=== PATIENT | female | born 1990 | race Caucasian/White ===

== ENCOUNTER 2017-02-17 09:57 | Emergency (ER) | payer OTHER ==
[~2017-02-17] VITALS: Ht 162.6 cm; Wt 95.3 kg
[~2017-02-17 09:57] MED LIST: HEATHER0.35 MG PO; KEFLEX500 MG PO; TRAMADOL 50 MG50 MG PO
[2017-02-17 10:54] LABS: ABSOLUTE NEUTROPHILS 6.1 thou/uL (1.4-8.2); BASOPHILS 0.9 % (0.0-2.0); EOSINOPHILS 0.8 % (0.0-3.0); HEMATOCRIT 42.3 % (37.0-47.0); HEMOGLOBIN 14.4 gm/dL (12.0-15.0); LYMPHOCYTES 22.1 % (24.0-44.0); MCH 27.9 pg (26.0-34.0); MCHC 34.1 g/dL (28.0-37.0); MONOCYTES 5.7 % (1.0-8.0); PLATELET COUNT 278 thou/uL (150-400); POLYS 70.5 % (36.0-66.0); RBC 5.15 mil/uL (4.20-5.00); RDW 14.3 % (10.5-14.5); WBC 8.7 thou/uL (4.0-11.0)
[2017-02-17 10:59] LABS: URINE BILIRUBIN NEGATIVE (Negative); URINE BLOOD 3+ (Negative); URINE COLOR YELLOW; URINE GLUCOSE-RANDOM* NEGATIVE (Negative); URINE KETONES NEGATIVE (Negative); URINE PROTEIN (DIPSTICK) TRACE (Negative); URINE UROBILINOGEN 0.2 E.U./dl (0.2-1.0)
[2017-02-17 11:02] LABS: MANUAL DIFF NO
[2017-02-17 11:07] LABS: CALCIUM 9.4 mg/dL (8.5-10.1); CREATININE 0.8 mg/dL (0.6-1.0); POTASSIUM 3.5 mmol/L (3.5-5.1)
[2017-02-17 11:13] LABS: ALBUMIN 4.4 g/dL (3.4-5.0); TOTAL BILIRUBIN 0.2 mg/dL (<0.1-1.0); TOTAL PROTEIN 8.2 g/dL (6.4-8.2)
[2017-02-17 11:14] LABS: URINE LEUKOCYTES-REFLEX TRACE (Negative)
[2017-02-17 11:21] LABS: SQUAMOUS >10 Many /LPF (0-3); URINE RBC >20 Many /HPF (0-2)
[2017-02-17 11:22] LABS: CASTS None Seen /LPF (None Seen); CRYSTALS None Seen /LPF (None Seen); URINE WBC-REFLEX 0-5 Rare /HPF (0-5)
[2017-02-17] MEDS ORDERED: HYDROCODONE-AP1 EAC6 PO (11:25)
[2017-02-17] MEDS ORDERED: SENNA8.6 MG PO (11:25)
== END 2017-02-17 11:49 | disposition home or self-care (01) ==
LOC: ER 09:57
PROVIDERS: Physician Assistant
DX: M54.5 Low back pain (principal); R53.1 Weakness; F17.210 Nicotine dependence, cigarettes, uncomplicated; Z90.721 Acquired absence of ovaries, unilateral

== ENCOUNTER 2018-01-25 11:06 | Emergency (ER) | payer OTHER ==
[~2018-01-25] VITALS: Ht 162.6 cm; Wt 99.8 kg
[~2018-01-25 11:06] MED LIST changes: +HYDROCODONE-AP1 EAC6 PO; +SENNA8.6 MG PO
[2018-01-25 11:46] LABS: URINE BILIRUBIN NEGATIVE (Negative); URINE BLOOD NEGATIVE (Negative); URINE CLARITY CLEAR; URINE COLOR YELLOW; URINE GLUCOSE-RANDOM* NEGATIVE (Negative); URINE KETONES NEGATIVE (Negative); URINE NITRITE-REFLEX NEGATIVE (Negative); URINE PROTEIN (DIPSTICK) NEGATIVE (Negative); URINE UROBILINOGEN 0.2 E.U./dl (0.2-1.0)
[2018-01-25 11:47] LABS: URINE LEUKOCYTES-REFLEX TRACE (Negative)
[2018-01-25 11:56] LABS: ABSOLUTE NEUTROPHILS 9.7 thou/uL (1.4-8.2); BASOPHILS 0.5 % (0.0-2.0); EOSINOPHILS 0.8 % (0.0-3.0); HEMATOCRIT 43.9 % (37.0-47.0); HEMOGLOBIN 15.2 gm/dL (12.0-15.0); LYMPHOCYTES 19.5 % (24.0-44.0); MCH 28.5 pg (26.0-34.0); MCHC 34.5 g/dL (28.0-37.0); MCV 82.6 fL (80.0-100.0); PLATELET COUNT 322 thou/uL (150-400); POLYS 72.2 % (36.0-66.0); RBC 5.32 mil/uL (4.20-5.00); RDW 13.3 % (10.5-14.5); WBC 13.5 thou/uL (4.0-11.0)
[2018-01-25 12:07] LABS: CREATININE 0.8 mg/dL (0.6-1.0); POTASSIUM 4.2 mmol/L (3.5-5.1)
[2018-01-25] MEDS ORDERED: LIORESAL 10 MG10 MG PO (12:19)
[2018-01-25] MEDS ORDERED: LORATIDINE 10 M10 M1 PO (12:19)
[2018-01-25] MEDS ORDERED: FLONASE 0.05%50 MCG NASAL (12:19)
[2018-01-25] MEDS ORDERED: TRAMADOL 50 MG50 MG PO (19:14)
== END 2018-01-25 12:30 | disposition home or self-care (01) ==
LOC: ER 11:06
PROVIDERS: Physician Assistant
DX: R25.2 Cramp and spasm (principal); M54.5 Low back pain; G89.29 Other chronic pain; J32.9 Chronic sinusitis, unspecified; F17.210 Nicotine dependence, cigarettes, uncomplicated

== ENCOUNTER 2018-01-25 15:37 | Emergency (ER) | payer OTHER ==
[~2018-01-25] VITALS: Ht 162.6 cm; Wt 99.8 kg
--- NOTE | ~2018-01-25 | EKG ---
[address] [address] ELECTROCARDIOGRAM REPORT Name: FREDDY CRAWFORD Room #: BRYCE Hackett#: [id number] Admission: 01/25/18 Attend Phys: Discharge: Date of : 89 Report #: [id number] THIS REPORT FOR: //name// [facility] ED Test Date: 2018-01-25 Test Time: 15:53:23 Pat Name: FREDDY CRAWFORD Department: Room: Gender: F Customer Services Manager: TAMARA : 1990 Requested By: Stu Freeman Order Number: [id number] MD: Justen Hercules Measurements Intervals [place] Rate: 141 P: 41 WA: 124 QRS: 48 QRSD: 80 T: 6 QT: 280 QTc: 429 Interpretive Statements Sinus tachycardia No previous ECG available for comparison Electronically Signed On 01-25-2018 16:30:56 CDT by Justen Hercules [email or web address] <ELECTRONICALLY SIGNED> By: Justen Hercules MD 01/25/18 1630 1553 1553 Justen Hercules MD /EPI
[~2018-01-25 15:37] MED LIST changes: +FLONASE 0.05%50 MCG NASAL; +LIORESAL 10 MG10 MG PO; +LORATIDINE 10 M10 M1 PO
[2018-01-25 16:53] LABS: AMP/METHAMP Negative (Negative); BARBITURATES Negative (Negative); BENZODIAZEPINES Negative (Negative); COCAINE Negative (Negative); METHADONE Negative (Negative); OPIATES POSITIVE (Negative); PCP Negative (Negative)
[2018-01-25 17:26] LABS: URINE BILIRUBIN NEGATIVE (Negative); URINE BLOOD TRACE (Negative); URINE CLARITY CLEAR; URINE COLOR YELLOW; URINE GLUCOSE-RANDOM* 3+ (Negative); URINE KETONES NEGATIVE (Negative); URINE LEUKOCYTES-REFLEX NEGATIVE (Negative); URINE NITRITE-REFLEX NEGATIVE (Negative); URINE PROTEIN (DIPSTICK) NEGATIVE (Negative); URINE UROBILINOGEN 0.2 E.U./dl (0.2-1.0)
[2018-01-25] MEDS ORDERED: TRAMADOL 50 MG50 MG PO (19:14)
== END 2018-01-25 19:49 | disposition home or self-care (01) ==
LOC: ER 15:37
PROVIDERS: Physician Assistant
DX: R51 Headache (principal); M54.9 Dorsalgia, unspecified; J32.9 Chronic sinusitis, unspecified

== ENCOUNTER 2018-05-02 12:46 | Emergency (ER) | payer OTHER ==
[~2018-05-02] VITALS: Ht 162.6 cm; Wt 101.2 kg
[2018-05-02] MEDS ORDERED: TRAMADOL 50 MG50 MG PO (14:24)
[2018-05-02 15:02] VITALS: BP 141/90
== END 2018-05-02 16:13 | disposition home or self-care (01) ==
LOC: ER 12:46
DX: M54.5 Low back pain (principal); G89.29 Other chronic pain; F17.210 Nicotine dependence, cigarettes, uncomplicated; Z90.721 Acquired absence of ovaries, unilateral

== ENCOUNTER 2018-05-31 10:31 | Emergency (ER) | payer OTHER ==
[~2018-05-31] VITALS: Ht 162.6 cm; Wt 101.2 kg
[2018-05-31 11:10] LABS: URINE BILIRUBIN NEGATIVE (Negative); URINE BLOOD NEGATIVE (Negative); URINE CLARITY CLEAR; URINE COLOR YELLOW; URINE GLUCOSE-RANDOM* NEGATIVE (Negative); URINE KETONES NEGATIVE (Negative); URINE NITRITE-REFLEX NEGATIVE (Negative); URINE PROTEIN (DIPSTICK) NEGATIVE (Negative); URINE SPECIFIC GRAVITY 1.025 (1.005-1.035); URINE UROBILINOGEN 0.2 E.U./dl (0.2-1.0)
[2018-05-31 11:10] LABS: ABSOLUTE NEUTROPHILS 6.3 thou/uL (1.4-8.2); BASOPHILS 1.2 % (0.0-2.0); EOSINOPHILS 1.2 % (0.0-3.0); HEMATOCRIT 42.3 % (37.0-47.0); HEMOGLOBIN 14.9 gm/dL (12.0-15.0); LYMPHOCYTES 32.5 % (24.0-44.0); MCH 28.8 pg (26.0-34.0); MCHC 35.1 g/dL (28.0-37.0); MCV 81.9 fL (80.0-100.0); MONOCYTES 5.9 % (1.0-8.0); PLATELET COUNT 336 thou/uL (150-400); POLYS 59.2 % (36.0-66.0); RBC 5.17 mil/uL (4.20-5.00); RDW 13.2 % (10.5-14.5); WBC 10.6 thou/uL (4.0-11.0)
[2018-05-31 11:11] LABS: URINE LEUKOCYTES-REFLEX 1+ (Negative)
[2018-05-31 11:24] LABS: CASTS None Seen /LPF (None Seen); CRYSTALS None Seen /LPF (None Seen); SQUAMOUS >10 Many /LPF (0-3)
[2018-05-31 11:25] LABS: URINE RBC 0-2 Rare /HPF (0-2); URINE WBC-REFLEX 6-15 Few /HPF (0-5)
[2018-05-31 11:26] LABS: BACTERIA-REFLEX 1-9 Few /HPF (None Seen)
[2018-05-31 12:09] LABS: ALBUMIN 4.1 g/dL (3.4-5.0); CALCIUM 9.1 mg/dL (8.5-10.1); CREATININE 0.9 mg/dL (0.6-1.0); POTASSIUM 3.9 mmol/L (3.5-5.1); TOTAL BILIRUBIN 0.2 mg/dL (<0.1-1.0); TOTAL PROTEIN 7.9 g/dL (6.4-8.2)
[2018-05-31 12:34] VITALS: BP 157/100
== END 2018-05-31 12:44 | disposition home or self-care (01) ==
LOC: ER 10:31
PROVIDERS: Nurse Practitioner
DX: R51 Headache (principal); R10.32 Left lower quadrant pain; G89.29 Other chronic pain; M54.9 Dorsalgia, unspecified; F17.210 Nicotine dependence, cigarettes, uncomplicated; Z90.721 Acquired absence of ovaries, unilateral

== ENCOUNTER 2018-10-11 16:02 | Emergency (ER) | payer OTHER ==
[~2018-10-11] VITALS: Ht 157.5 cm; Wt 99.8 kg
[2018-10-11 16:19] LABS: URINE BILIRUBIN NEGATIVE (Negative); URINE BLOOD NEGATIVE (Negative); URINE CLARITY CLEAR; URINE COLOR YELLOW; URINE GLUCOSE-RANDOM* NEGATIVE (Negative); URINE KETONES NEGATIVE (Negative); URINE LEUKOCYTES-REFLEX TRACE (Negative); URINE NITRITE-REFLEX NEGATIVE (Negative); URINE PROTEIN (DIPSTICK) NEGATIVE (Negative); URINE SPECIFIC GRAVITY 1.015 (1.005-1.035); URINE UROBILINOGEN 0.2 E.U./dl (0.2-1.0)
[2018-10-11 17:39] LABS: CALCIUM 9.2 mg/dL (8.5-10.1); CREATININE 0.9 mg/dL (0.6-1.0); POTASSIUM 3.8 mmol/L (3.5-5.1)
[2018-10-11 17:41] LABS: ABSOLUTE NEUTROPHILS 6.7 thou/uL (1.4-8.2); BASOPHILS 0.9 % (0.0-2.0); EOSINOPHILS 2.2 % (0.0-3.0); HEMATOCRIT 38.8 % (37.0-47.0); HEMOGLOBIN 13.3 gm/dL (12.0-15.0); LYMPHOCYTES 34.2 % (24.0-44.0); MCH 28.8 pg (26.0-34.0); MCHC 34.4 g/dL (28.0-37.0); MCV 83.7 fL (80.0-100.0); MONOCYTES 5.6 % (1.0-8.0); PLATELET COUNT 324 thou/uL (150-400); POLYS 57.1 % (36.0-66.0); RBC 4.64 mil/uL (4.20-5.00); RDW 12.7 % (10.5-14.5); WBC 11.7 thou/uL (4.0-11.0)
[2018-10-11 17:45] LABS: ALBUMIN 3.9 g/dL (3.4-5.0); TOTAL BILIRUBIN 0.2 mg/dL (<0.1-1.0); TOTAL PROTEIN 7.4 g/dL (6.4-8.2)
[2018-10-11] MEDS ORDERED: ZOFRAN ODT4 MG PO (19:52)
[2018-10-11] MEDS ORDERED: BENTYL 20 MG TA20 M1 PO (19:52)
[2018-10-11 20:44] VITALS: BP 123/67
== END 2018-10-11 20:44 | disposition home or self-care (01) ==
LOC: ER 16:02
PROVIDERS: Physician Assistant
DX: N83.202 Unspecified ovarian cyst, left side (principal); K82.8 Other specified diseases of gallbladder; F17.210 Nicotine dependence, cigarettes, uncomplicated; Z90.721 Acquired absence of ovaries, unilateral

== ENCOUNTER 2019-04-24 12:42 | Emergency (ER) | payer OTHER ==
[~2019-04-24] VITALS: Ht 162.6 cm; Wt 100.7 kg
[~2019-04-24 12:42] MED LIST changes: +BENTYL 20 MG TA20 M1 PO; +ZOFRAN ODT4 MG PO
[2019-04-24 12:44] VITALS: BP 150/92
[2019-04-24 13:00] LABS: URINE BILIRUBIN NEGATIVE (Negative); URINE BLOOD 3+ (Negative); URINE CLARITY CLOUDY; URINE COLOR YELLOW; URINE GLUCOSE-RANDOM* NEGATIVE (Negative); URINE KETONES NEGATIVE (Negative); URINE NITRITE-REFLEX NEGATIVE (Negative); URINE PROTEIN (DIPSTICK) NEGATIVE (Negative); URINE SPECIFIC GRAVITY >= 1.030 (1.005-1.035); URINE UROBILINOGEN 0.2 E.U./dl (0.2-1.0)
[2019-04-24 13:01] LABS: URINE LEUKOCYTES-REFLEX 1+ (Negative)
[2019-04-24] MEDS ORDERED: HEATHER0.35 MG PO (13:03)
[2019-04-24 13:18] LABS: CASTS None Seen /LPF (None Seen); CRYSTALS None Seen /LPF (None Seen); SQUAMOUS 4-10 Moderate /LPF (0-3); URINE RBC >20 Many /HPF (0-2); URINE WBC-REFLEX 0-5 Rare /HPF (0-5)
[2019-04-24 13:19] LABS: BACTERIA-REFLEX 1-9 Few /HPF (None Seen)
[2019-04-24] MEDS ORDERED: NORFLEX100 MG PO (13:27)
[2019-04-24] MEDS ORDERED: NAPROSYN500 MG PO (13:27)
== END 2019-04-24 13:38 | disposition home or self-care (01) ==
LOC: ER 12:42
PROVIDERS: Emergency Medicine
DX: S39.012A Strain of muscle, fascia and tendon of lower back, initial encounter (principal); F17.210 Nicotine dependence, cigarettes, uncomplicated; Z90.721 Acquired absence of ovaries, unilateral; X50.1XXA Overexertion from prolonged static or awkward postures, initial encounter; Y93.89 Activity, other specified; Y92.89 Other specified places as the place of occurrence of the external cause; Y99.8 Other external cause status

== ENCOUNTER 2019-05-04 12:32 | Emergency (ER) | payer OTHER ==
[~2019-05-04] VITALS: Ht 162.6 cm; Wt 100.7 kg
[~2019-05-04 12:32] MED LIST changes: +NAPROSYN500 MG PO; +NORFLEX100 MG PO
[2019-05-04 13:17] LABS: URINE BILIRUBIN NEGATIVE (Negative); URINE BLOOD 1+ (Negative); URINE CLARITY CLEAR; URINE COLOR YELLOW; URINE GLUCOSE-RANDOM* NEGATIVE (Negative); URINE KETONES NEGATIVE (Negative); URINE NITRITE-REFLEX NEGATIVE (Negative); URINE PROTEIN (DIPSTICK) NEGATIVE (Negative); URINE SPECIFIC GRAVITY >= 1.030 (1.005-1.035); URINE UROBILINOGEN 0.2 E.U./dl (0.2-1.0)
[2019-05-04 13:19] LABS: URINE LEUKOCYTES-REFLEX 1+ (Negative)
[2019-05-04 13:32] LABS: BACTERIA-REFLEX 1-9 Few /HPF (None Seen); CASTS None Seen /LPF (None Seen); CRYSTALS None Seen /LPF (None Seen); SQUAMOUS 0-3 Few /LPF (0-3); URINE RBC 3-10 Few /HPF (0-2); URINE WBC-REFLEX 6-15 Few /HPF (0-5)
[2019-05-04 14:22] LABS: ABSOLUTE NEUTROPHILS 11.6 thou/uL (1.4-8.2); BASOPHILS 0.8 % (0.0-2.0); EOSINOPHILS 0.3 % (0.0-3.0); HEMATOCRIT 43.8 % (37.0-47.0); HEMOGLOBIN 14.8 gm/dL (12.0-15.0); LYMPHOCYTES 15.3 % (24.0-44.0); MCH 28.5 pg (26.0-34.0); MCHC 33.8 g/dL (28.0-37.0); MCV 84.6 fL (80.0-100.0); MONOCYTES 3.6 % (1.0-8.0); PLATELET COUNT 364 thou/uL (150-400); RBC 5.18 mil/uL (4.20-5.00); RDW 13.3 % (10.5-14.5); WBC 14.5 thou/uL (4.0-11.0)
[2019-05-04 14:31] LABS: CALCIUM 10.3 mg/dL (8.5-10.1); CREATININE 0.8 mg/dL (0.6-1.0); POTASSIUM 4.1 mmol/L (3.5-5.1)
[2019-05-04 14:37] LABS: ALBUMIN 4.4 g/dL (3.4-5.0); TOTAL BILIRUBIN 0.5 mg/dL (<0.1-1.0); TOTAL PROTEIN 8.6 g/dL (6.4-8.2)
[2019-05-04 16:16] VITALS: BP 134/68
[2019-05-04] MEDS ORDERED: NORCO 5-325 TA1 EAC1 PO (16:22)
[2019-05-04] MEDS ORDERED: NAPROSYN500 MG PO (16:22)
[2019-05-04] MEDS ORDERED: KEFLEX500 M1 PO (16:22)
== END 2019-05-04 17:17 | disposition home or self-care (01) ==
LOC: ER 12:32
PROVIDERS: Physician Assistant
DX: N39.0 Urinary tract infection, site not specified (principal); F17.210 Nicotine dependence, cigarettes, uncomplicated; Z90.721 Acquired absence of ovaries, unilateral

== ENCOUNTER 2019-05-23 08:37 | Emergency (ER) | payer OTHER ==
[~2019-05-23] VITALS: Ht 160 cm; Wt 102.1 kg
[~2019-05-23 08:37] MED LIST changes: +KEFLEX500 M1 PO; +NORCO 5-325 TA1 EAC1 PO
[2019-05-23] MEDS ORDERED: TRAMADOL 50 MG50 MG PO (08:58)
[2019-05-23 09:15] LABS: URINE BILIRUBIN NEGATIVE (Negative); URINE BLOOD 1+ (Negative); URINE CLARITY CLOUDY; URINE COLOR YELLOW; URINE GLUCOSE-RANDOM* NEGATIVE (Negative); URINE KETONES NEGATIVE (Negative); URINE LEUKOCYTES-REFLEX TRACE (Negative); URINE NITRITE-REFLEX NEGATIVE (Negative); URINE PROTEIN (DIPSTICK) NEGATIVE (Negative); URINE SPECIFIC GRAVITY >= 1.030 (1.005-1.035); URINE UROBILINOGEN 0.2 E.U./dl (0.2-1.0)
[2019-05-23 09:26] LABS: AMORPHOUS URATES Many /LPF (None Seen)
[2019-05-23 09:27] LABS: BACTERIA-REFLEX 1-9 Few /HPF (None Seen); CASTS None Seen /LPF (None Seen); SQUAMOUS 0-3 Few /LPF (0-3); URINE RBC None Seen /HPF (0-2); URINE WBC-REFLEX None Seen /HPF (0-5)
[2019-05-23 09:32] LABS: ABSOLUTE NEUTROPHILS 9.2 thou/uL (1.4-8.2); BASOPHILS 0.9 % (0.0-2.0); EOSINOPHILS 1.3 % (0.0-3.0); HEMATOCRIT 42.6 % (37.0-47.0); HEMOGLOBIN 14.3 gm/dL (12.0-15.0); LYMPHOCYTES 20.3 % (24.0-44.0); MCH 28.3 pg (26.0-34.0); MCHC 33.6 g/dL (28.0-37.0); MCV 84.2 fL (80.0-100.0); MONOCYTES 4.3 % (1.0-8.0); POLYS 73.2 % (36.0-66.0); RBC 5.05 mil/uL (4.20-5.00); RDW 13.5 % (10.5-14.5); WBC 14.1 thou/uL (4.0-11.0)
[2019-05-23 09:42] LABS: CALCIUM 9.7 mg/dL (8.5-10.1); CREATININE 0.8 mg/dL (0.6-1.0); POTASSIUM 3.7 mmol/L (3.5-5.1)
[2019-05-23 09:49] LABS: ALBUMIN 4.2 g/dL (3.4-5.0); TOTAL BILIRUBIN 0.3 mg/dL (<0.1-1.0); TOTAL PROTEIN 8.5 g/dL (6.4-8.2)
[2019-05-23 10:35] LABS: PLATELET COUNT 366 thou/uL (150-400)
[2019-05-23 14:50] VITALS: BP 117/67
== END 2019-05-23 14:51 | disposition home or self-care (01) ==
LOC: ER 08:37
PROVIDERS: Emergency Medicine
DX: R10.84 Generalized abdominal pain (principal); F17.210 Nicotine dependence, cigarettes, uncomplicated; Z90.721 Acquired absence of ovaries, unilateral; Z90.49 Acquired absence of other specified parts of digestive tract

== ENCOUNTER 2020-01-19 17:23 | Emergency (ER) | payer OTHER ==
[~2020-01-19] VITALS: Ht 162.6 cm; Wt 104.3 kg
[2020-01-19 17:33] VITALS: BP 147/86
[2020-01-19] MEDS ORDERED: CORTISPORIN OTI10 M2 OTIC (18:03)
[2020-01-19] MEDS ORDERED: NORCO 5-325 TA1 EAC2 PO (18:03)
== END 2020-01-19 18:20 | disposition still patient (30) ==
LOC: ER 17:23
DX: H60.92 Unspecified otitis externa, left ear (principal); F17.210 Nicotine dependence, cigarettes, uncomplicated; Z79.899 Other long term (current) drug therapy